=== PATIENT | female | born 1985 ===

== ENCOUNTER 2016-11-19 12:01 | Inpatient (IN) ==
[2016-11-19] MEDS ORDERED: Ondansetron 4 MG/2 ML VIAL IVP PRN (12:24)
[2016-11-19] MEDS ORDERED: Metoclopramide 10 MG/2 ML VIAL IVP PRN (12:24)
[2016-11-19] MEDS ORDERED: Naloxone 0.4 MG/ML INJ IVP PRN (12:24)
[2016-11-19] MEDS ORDERED: Famotidine 20 MG/2 ML VIAL IVP PRN (12:24)
[2016-11-19] MEDS ORDERED: Ringers Solution, Lactated 1,000 ML IVC SCH (12:30)
[2016-11-19 12:36] LABS: Basophils # 0.1 K/mcL (0.0-0.2); Basophils % 0.6 %; Eosinophils # 0.1 K/mcL (0.0-0.6); Eosinophils % 0.9 %; Hemoglobin 12.3 g/dL (11.5-15.4); Immature Granulocytes % 1.1 % (0-4); Lymphocytes # 1.5 K/mcL (0.6-4.6); Lymphocytes % 18.3 %; Mean Corpuscular HGB Conc 33.2 g/dL (31.6-35.5); Mean Corpuscular Hemoglobin 27.1 pg (28.0-33.3); Mean Corpuscular Volume 81.5 fL (83.0-100.0); Mean Platelet Volume 12.6 fL (9.4-12.4); Monocytes # 0.4 K/mcL (0.0-1.3); Monocytes % 4.9 %; Neutrophils # 5.9 K/mcL (1.6-8.9); Platelet Count 133 K/mcL (140-400); Red Blood Count 4.54 M/mcL (3.82-4.97); Red Cell Distribution Width 14.1 % (11.5-14.5); Segmented Neutrophils % 74.2 %
[2016-11-19] MEDS ORDERED: miSOPROStol 25 MCG TABLET PO PRN (12:55)
[2016-11-19] MEDS ORDERED: *HR* Nalbuphine 20 MG/ML AMPUL IVP PRN (12:56)
[2016-11-19] MEDS ORDERED: Epidural Premix (fent/bupiv) 110 ML EP ONE ×2 (14:59→22:11)
--- NOTE | 2016-11-19 15:07 | OB Labor Progress Note ---
Date of Encounter: 11/19/16 Time of Encounter: 14:44 Labor Progress Note - Subjective Subjective: Please see patient's H&P and documents from [facility]. The patient is starting to feel her contractions. She is requesting an epidural prior to amniotomy. She has had 1 dose of 25 mcgs of oral Cytotec. - Vital Signs Vital Signs: Afebrile, vital signs stable - Cervix Cervix: 5/70/-2, vertex - Heart Tones Heart Tones: 120s, CAT 1 - [place]: 2-4 minutes on external toco - Interventions Interventions: 39 week IUP for induction of labor for history of precipitous delivery, anemia with spontaneous contractions on arrival and cervical change from her previous exam. - Plan Plan: Epidural per patient's request followed by an amniotomy with anticipation of a vaginal delivery
[2016-11-19] MEDS ORDERED: Epidural Premix (fent/bupiv) 110 ML EP SCH (15:15)
--- NOTE | 2016-11-19 15:18 | Anesthesia Evaluation PreOp ---
Date of Encounter: 11/19/16 Time of Encounter: 15:00 - Past History Planned Operation: SETH Cardiac History: Denies any Significant Hx Pulmonary History: Denies Any Significant HX CLAIMS PROCESSOR History: Denies Any Significant HX Other Medical History: Denies Any Significant HX Anesthesia History: No Prior Anesthetic Complications : Yes (39.2) Test: Positive Alcohol Use: none Drug use: none Medications and Allergies Ferrous Sulfate 11/19/16 [History] Folic Acid 11/19/16 [History] Magnesium 11/19/16 [History] Formula Tablet 11/19/16 [History] Allergies No Known Allergies Allergy (Verified 11/19/16 12:24) - Meds/Allergy Pre-op Review Medications Reviewed: Yes Allergies Reviewed: Yes Beta Blockers on Current Med List: No Anesthesia Results - Labs 11/19/16 12:25 Anesthesia Exam Height: 68 Weight: 97.4 Pain Scale: 0 - HEENT Pupil (Motor): Pupils equal Mallampati: II Teeth: Normal Oral Opening: Greater than 3 - CLAIMS PROCESSOR LOC: Oriented CLAIMS PROCESSOR Motor: Normal RUE, Normal LUE, Normal RLE, Normal LLE, Normal Face CLAIMS PROCESSOR Sensory: Normal: RUE, LUE, RLE, LLE, Face - Pulmonary Breath Sounds: bilateral Clear Respiratory Effort: Symmetrical Anesthesia Assess/Plan ASA Score: 1 Modified [place] Scale for Level of Consciousness: Cooperative, oriented, and tranquil Anesthetic Plan: Regional Autologous Blood: No Monitoring Plan: Standard Monitors
--- NOTE | 2016-11-19 16:26 | Anesthesia Procedures ---
Date of Encounter: 11/19/16 Time of Encounter: 15:00 Procedures: Anesthesia - Epidural/Spinal Patient ID/Chart reviewed: Yes Patient examined: Yes OB Eval: Gestational age: 39.5 OB Eval: : 3 OB Eval: Hx Para: 2 OB Eval: Dilated at (cm): 5 OB Eval: Contractions: Non-stressed pattern Consent Obtained: Yes Supplemental Oxygen: None/Room Air Site Prep: Aseptic Technique, Sterile prep and drape, Povidone-Iodine 1% Patient position: upright Local Anesthetic: Lidocaine 1% Amount of Local Anesthetic used: 3 Touhy Needle Gauge: 18 Touhy Needle Depth (cm): 6 Catheter Depth at Skin (cm): 12 Test Dose (1.5% Lido + Epi): Volume given (mls): 3 Test Dose Result: Negative Loading Dose Administered: Thru Catheter Infusion Rate (mls/hr): [address]: Tegaderm, Tape Interspace Used: L3-L4 Loss of Resistance (MAHAD): Yes (saline) Blood: No CSF: No Paresthesia: No Vitals + FHT's: stable throughout see nursing notes
--- NOTE | 2016-11-19 18:01 | OB Labor Progress Note ---
Date of Encounter: 11/19/16 Time of Encounter: 17:59 Labor Progress Note - Subjective Subjective: The patient is comfortable with her epidural. - Vital Signs Vital Signs: Afebrile, vital signs stable - Cervix Cervix: 6/70/-1, vertex - Heart Tones Heart Tones: 120s baseline, CAT 1 - [place]: Contractions appear irregular, patient sleeping on her left side - Interventions Interventions: 39 week 2 day IUP for induction of labor, history of anemia, history of precipitous labor, status post epidural - Plan Plan: Amniotomy performed with a large amount of clear fluid seen. IUPC placed without difficulty. Patient confirm comfort. Observe for need of augmentation
[2016-11-19] MEDS ORDERED: Oxytocin 20 units/ LR 1000 mL 20 UNIT/1,000 ML BAG IVC SCH (20:00)
[2016-11-19] MEDS ORDERED: *HR* FentaNYL (PF) 100 MCG/2 ML VIAL ONE (23:09)
[2016-11-20] MEDS ORDERED: Acetaminophen 325 MG TABLET PO PRN (00:18)
[2016-11-20] MEDS ORDERED: Rho Immune Globulin 1,500 UNIT SYRINGE IM PRN (00:18)
[2016-11-20] MEDS ORDERED: *HR* HYDROcodone/Acet 5/325 mg TABLET PO PRN (00:18)
[2016-11-20] MEDS ORDERED: Oxytocin 20 units/ LR 1000 mL 20 UNIT/1,000 ML BAG IVC SCH (00:18)
[2016-11-20] MEDS ORDERED: Measles/Mumps/Rubella Vacc 0.5 ML VIAL SQ PRN (00:18)
--- NOTE | 2016-11-20 00:19 | OB/GYN Procedure Note ---
Delivery - Delivery Date: 11/20/16 Provider: Natalee Russell Intrapartum events: none Delivery induction: misoprostol Delivery augmentation: rupture of membranes, pitocin Delivery monitor: external FHT, external uterine, internal uterine Anesthesia: epidural Estimated Blood Loss: 200 - (s) Infant A Infant Delivery Date: 11/19/16 Delivery Time: 23:45 Presentation: vertex Position: KASIA Route of delivery: Gender: Female Viability: Viable Pounds: 8 Ounces: 7 at 1 minute: 8 at 5 mins: 9 Shoulder Dystocia: not encountered Specimens collected: cord blood Placenta: spontaneous, uterine exploration Cord: 3 umbilical vessels, other (Cord around both legs) - Repair Episiotomy: none Laceration Description: Perineal - 2nd Degree, Labial (Right) - Complications Delivery complications: none Delivery comments: The patient was complete and pushing with epidural anesthesia with a spontaneous vaginal delivery in the KASIA position of a vigorous female infant weighing 8 lbs. 7 oz. with Apgars of 8 at 1 minute and 9 at 5 minutes. was placed on the maternal abdomen. The cord was clamped and cut after pulsations ceased. Cord blood obtained. The placenta was delivered spontaneous and intact. The uterus was explored and a no retained products of conception. Right labial laceration was closed with 4-0 Vicryl in a running nonlocking fashion. There was a second-degree perineal laceration which was repaired with 3-0 Vicryl in the usual fashion. Estimated blood loss 200 mL, complications none - Disposition Mom disposition: stable in LDR [place] disposition: stable in LDR
[2016-11-20] MEDS: Ibuprofen 600 MG TABLET PO SCH ×3 (04:36→19:55)
[2016-11-20 06:58] LABS: Basophils # 0.1 K/mcL (0.0-0.2); Basophils % 0.6 %; Eosinophils # 0.1 K/mcL (0.0-0.6); Eosinophils % 0.7 %; Hematocrit 36.8 % (35.3-44.9); Hemoglobin 11.9 g/dL (11.5-15.4); Immature Granulocytes % 1.1 % (0-4); Lymphocytes # 1.5 K/mcL (0.6-4.6); Lymphocytes % 15.2 %; Mean Corpuscular HGB Conc 32.3 g/dL (31.6-35.5); Mean Corpuscular Hemoglobin 26.5 pg (28.0-33.3); Mean Platelet Volume 12.8 fL (9.4-12.4); Monocytes # 0.6 K/mcL (0.0-1.3); Monocytes % 6.1 %; Neutrophils # 7.7 K/mcL (1.6-8.9); Platelet Count 110 K/mcL (140-400); Red Blood Count 4.49 M/mcL (3.82-4.97); Red Cell Distribution Width 14.2 % (11.5-14.5); Segmented Neutrophils % 76.3 %
[2016-11-20] MEDS: Prenatal Vit/FA 1 EACH TABLET PO SCH (08:45)
--- NOTE | 2016-11-20 08:55 | OB/GYN Progress Note ---
Date of Encounter: 11/20/16 Time of Encounter: 08:53 - Assessment and Plan (1) Vaginal delivery Current Visit: Yes Status: Acute Continue routine care (2) Breast feeding status of mother Current Visit: Yes Status: Acute support prn (3) Second degree perineal laceration during delivery Current Visit: Yes Status: Acute ice packs to perineum Dermaplast prn Subjective - Subjective Principal diagnosis: day 1 Interval history: Patient doing well. Reports only pain is cramping during breast feeding. Patient reports Motrin helps with pain. Patient reports: appetite normal, voiding normally, pain well controlled, ambulating normally : doing well, nursing well Objective - Latest Vital Signs Latest vital signs: Vital Signs Temp Pulse Resp BP Pulse Ox 11/20/16 08:10 98.0 F 73 17 104/70 97 11/20/16 04:20 97.8 F 58 14 124/72 97 11/20/16 03:20 97.8 F 61 14 112/73 98 11/20/16 03:15 14 11/20/16 02:20 97.8 F 58 16 110/69 99 Intake and Output 11/19/16 11/20/16 11/20/16 23:59 07:59 15:59 Intake Total 1200 / 1200 100 / 100 Output Total 1450 / 1450 400 / 400 Balance -1450 / -1450 800 / 800 100 / 100 Intake: Oral 1200 / 1200 100 / 100 Output: Urine 400 / 400 Catheter 1450 / 1450 Other: Weight 93.213 kg Patient Weight 11/20/16 23:59 Weight 93.213 kg - Exam Lungs: bilateral: normal Chest: Normal S1, Normal S2 Extremities: Present: normal Abdomen: Present: normal appearance, soft, gravid Uterus: Present: normal, firm Uterus Position: 1 Finger Below Umbilicus, Midline - Labs Labs: Laboratory Results - last 24 hr 11/19/16 11/20/16 12:25 06:36 WBC 8.0 10.0 RBC 4.54 4.49 Hgb 12.3 11.9 Hct 37.0 36.8 MCV 81.5 L 82.0 L MCH 27.1 L 26.5 L MCHC 33.2 32.3 RDW 14.1 14.2 Plt Count 133 L 110 L MPV 12.6 H 12.8 H Immature Gran % 1.1 1.1 Seg Neutrophils % 74.2 76.3 Lymphocytes % 18.3 15.2 Monocytes % 4.9 6.1 Eosinophils % 0.9 0.7 Basophils % 0.6 0.6 Neutrophils # 5.9 7.7 Lymphocytes # 1.5 1.5 Monocytes # 0.4 0.6 Eosinophils # 0.1 0.1 Basophils # 0.1 0.1
[2016-11-20] MEDS: Benzocaine/Menthol 56 GM AEROSOL SPRAY TP PRN ×2 (12:33→19:56)
[2016-11-21] MEDS: Ibuprofen 600 MG TABLET PO SCH ×2 (01:51→08:09)
[2016-11-21] MEDS: Prenatal Vit/FA 1 EACH TABLET PO SCH (08:09)
[2016-11-21 08:18] VITALS: BP 108/71
--- NOTE | 2016-11-21 08:25 | Discharge Summary ---
Date of Encounter: 11/21/16 Time of Encounter: 08:22 - Discharge Diagnosis (1) Vaginal delivery Priority: Primary Status: Acute Comments: Doing well s/p vaginal delivery day 2 Pain is well controlled Lochia is light and without clots tolerating regular diet without difficulty VSS Denies headache, visual disturbances, and epigastric pain Discharge home today with infant (2) Breast feeding status of mother Priority: Secondary Status: Acute Comments: is going well States that she already has a new pump (3) Second degree perineal laceration during delivery Priority: Secondary Status: Acute Comments: Pain well controlled Utilizing tucks pads and dermoplast spray - Discharge Medications Home Medications: Folic Acid 11/19/16 [History] Magnesium 11/19/16 [History] Formula Tablet 11/19/16 [History] Benzocaine/Menthol Ulysses [Dermoplast Ulysses] 1 appl TP QID PRN aerosol 11/21/16 [Rx] Docusate [Colace] 100 mg PO BID 11/21/16 [Rx] Hydrocortisone 1% CREAM [Cortaid] 1 appl TP BID PRN bottle 11/21/16 [Rx] Ibuprofen [Motrin] 600 mg PO Q6HR tab 11/21/16 [Rx] Allergies/Adverse Reactions: Allergies No Known Allergies Allergy (Verified 11/19/16 12:24) Data Procedures and tests throughout hospitalization: Laboratory Tests 11/19/16 11/20/16 12:25 06:36 WBC 8.0 10.0 RBC 4.54 4.49 Hgb 12.3 11.9 Hct 37.0 36.8 MCV 81.5 L 82.0 L MCH 27.1 L 26.5 L MCHC 33.2 32.3 RDW 14.1 14.2 Plt Count 133 L 110 L MPV 12.6 H 12.8 H Immature Gran % 1.1 1.1 Seg Neutrophils % 74.2 76.3 Lymphocytes % 18.3 15.2 Monocytes % 4.9 6.1 Eosinophils % 0.9 0.7 Basophils % 0.6 0.6 Neutrophils # 5.9 7.7 Lymphocytes # 1.5 1.5 Monocytes # 0.4 0.6 Eosinophils # 0.1 0.1 Basophils # 0.1 0.1 Date of admission: 11/19/16 12:01 Primary care physician: Jose Carlos Boss Jr, MD Consults: 11/20/16 00:18 Consult to Medical Sales [CONS] Routine Comment: Vaginal delivery, consult needed Discharging clinician: Ely Mondragon Anticipated date of discharge: 11/21/16 - Patient Status Disposition: Home, Self-Care Condition: Good Functional capacity at discharge: independent ambulation Overall status at discharge: patient is progressing back to baseline - Discharge Instructions Follow Up With: Jose Carlos Boss Jr, MD [Primary Care Provider] - Natalee Russell MD [Partnered Physician] - - Diet and Activity Activity: increase activity as tolerated Diet: regular diet Hospital Course Reason for admission: induction of labor Delivery: Episiotomy: none Laceration: 2nd degree, other (labial) Other procedures: none complications: none Discharge diagnosis: IUP at term delivered [place] baby: female Time Attestation: Total time spent providing and/or coordinating discharge services: Time Spent: Less than 30 minutes Exam - Constitutional Vitals: Temp Pulse Resp BP Pulse Ox 98.2 F 64 16 108/71 98 11/21/16 07:30 11/21/16 07:30 11/21/16 07:30 11/21/16 07:30 11/20/16 19:50 General appearance IM: cooperative, A&O X 3, pleasant - Respiratory Respiratory exam: Present: CTAB - Cardiovascular Cardiovascular exam IM: Present: RRR, +S1, +S2 - GI/Abdominal GI/Abdominal exam IM: normal bowel sounds, soft - Uterine Tone: Firm Uterus Position: 1 Finger Below Umbilicus, Midline - Extremities Exam Extremities exam IM: Present: normal capillary refill, normal inspection, pedal edema (trace), radial pulses palpable and symmetrical - Neurological Exam Neurological exam: alert, oriented X3, reflexes normal
== END 2016-11-21 12:40 | disposition home or self-care (01) | DRG 775 ==
LOC: 1NENULAB 12:01 → 1NENUOBS 11-20 06:14
PROVIDERS: ADMIT Obstetrics & Gynecology; ATTEND Obstetrics & Gynecology